=== PATIENT | female | born 1945 | race Caucasian/White ===

== ENCOUNTER 2021-02-27 17:51 | Emergency (ER) | payer OTHER ==
[2021-02-27 18:12] VITALS: BP 132/88; PULSE 68; TEMP 98; BMI 35.7
[2021-02-27 20:59] LABS: HEMOGLOBIN 12.8 GM/dL (10.7-15.3); RBC 4.23 M/mm3 (3.60-5.2); WHITE BLOOD COUNT 9.4 K/mm3 (4.0-10.0)
[2021-02-27 21:00] LABS: HEMATOCRIT 37.9 % (32.4-45.2); MCH 30.2 pg (25.7-33.7); MCHC 33.7 g/dl (32.0-36.0); MEAN CELL VOLUME 89.8 fl (80-96); MEAN PLT VOLUME 9.7 fl (7.5-11.1); PLATELET COUNT 157 10^3/uL (134-434); RDW 13.6 % (11.6-15.6)
[2021-02-27 21:01] LABS: BASO % 0.6 % (0-2.0); EOS % 2.7 % (0-4.5); LYMPH % 24.1 % (8-40); MONO % 6.4 % (3.8-10.2); NEUT % 66.2 % (42.8-82.8)
[2021-02-27 21:47] LABS: ACTIVATED PTT 31.4 SECONDS (25.2-36.5); INR 1.01 (0.83-1.09); PROTHROMBIN TIME (PATIENT) 12.4 SEC (9.7-13.0)
== END 2021-02-27 22:15 | disposition home or self-care (01) ==
LOC: JER 17:51
DX: I83.892 Varicose veins of left lower extremity with other complications (principal)
CPT/HCPCS: 36415; 85025; 85610; 85730; 86850; 86900; 86901; 99283-25

== ENCOUNTER 2023-05-19 11:53 | Emergency (ER) | payer OTHER ==
[2023-05-19 11:58] VITALS: BP 155/88; PULSE 67; RESP 18; TEMP 97.3; BMI 34.7
[2023-05-19 13:00] LABS: BASO % 0.6 % (0-2.0); EOS % 3.1 % (0-4.5); HEMATOCRIT 41.2 % (32.4-45.2); HEMOGLOBIN 13.6 GM/dL (10.7-15.3); MCH 29.3 pg (25.7-33.7); MCHC 32.9 g/dl (32.0-36.0); MEAN CELL VOLUME 89.1 fl (80-96); MEAN PLT VOLUME 8.9 fl (7.5-11.1); MONO % 7.6 % (3.8-10.2); NEUT % 67.7 % (42.8-82.8); PLATELET COUNT 138 10^3/uL (134-434); RBC 4.63 M/mm3 (3.60-5.2); RDW 14.3 % (11.6-15.6); WHITE BLOOD COUNT 6.6 K/mm3 (4.0-10.0)
[2023-05-19 13:06] LABS: INR 1.17 (0.83-1.09); PROTHROMBIN TIME (PATIENT) 13.5 SEC (9.7-13.0)
[2023-05-19 13:08] LABS: ACTIVATED PTT 33.5 SECONDS (25.2-36.5)
[2023-05-19 13:16] LABS: ALBUMIN 3.4 g/dl (3.4-5.0); CALCIUM 9.4 mg/dL (8.5-10.1)
[2023-05-19 13:17] LABS: BLOOD UREA NITROGEN 17.7 mg/dL (7-18)
[2023-05-19 13:21] LABS: BILIRUBIN,TOTAL 0.5 mg/dL (0.2-1); TOT PROT 6.9 g/dl (6.4-8.2)
== END 2023-05-19 14:21 | disposition home or self-care (01) ==
LOC: JER 11:53
DX: I83.023 Varicose veins of left lower extremity with ulcer of ankle (principal); I83.892 Varicose veins of left lower extremity with other complications
CPT/HCPCS: 36415; 80053; 85025; 85610; 85730; 99283-25

== ENCOUNTER 2023-09-01 13:19 | Emergency (ER) | payer OTHER ==
[2023-09-01 13:33] VITALS: BP 135/86; PULSE 79; RESP 18; TEMP 98; BMI 30.2
[2023-09-01] MEDS ORDERED: BACITRACIN 0.9 GM PACKET ONE (14:18)
[2023-09-01] MEDS: BACITRACIN ZINC 15 GM TUBE TOPICAL OINTMENT TP ONE (14:27)
== END 2023-09-01 15:09 | disposition home or self-care (01) ==
LOC: JER 13:19
DX: T24.212D Burn of second degree of left thigh, subsequent encounter (principal); M79.652 Pain in left thigh; X10.2XXD Contact with fats and cooking oils, subsequent encounter; Y93.G3 Activity, cooking and baking; Y92.000 Kitchen of unspecified non-institutional (private) residence as the place of occurrence of the external cause
CPT/HCPCS: 99283-25